=== PATIENT | male | born 1960 | race Caucasian/White ===

== ENCOUNTER → 2016-12-02 | Day surgery (SDC) | payer OTHER ==
[~2016-12-02] MED LIST: BUDE10.2 IH; FENTANYL PF 100 MCG/2 ML VIAL. IV PRN; HYDROMORPHONE 2 MG/ML VIAL. IV PRN; IV RINGERS,LACTATED 1000ML 1,000 ML IV SCH; LIDOCAINE 1% 1 ML SYRINGE. ID PRN; MORPHINE SULFATE 2 MG/ML DISP.SYRIN. IV PRN; ONDANSETRON PF 4 MG/2 ML VIAL. IV PRN; PROCHLORPERAZINE 10 MG/2 ML VIAL. IV PRN; PROPOFOL 40 ML IV ONE
[2016-12-02 08:40] VITALS: BP 125/84
--- NOTE | 2016-12-05 13:49 | PATHOLOGY ---
PATHOLOGY REPORT * * * * * * * * FINAL DIAGNOSIS: A. Colorectal biopsy, rectal polyp: - Tubular adenoma. B. Colon biopsies, sigmoid polyps x 2:- Tubular adenoma. - Hyperplastic polyp showing coagulation artifact. COMMENT: There is no high grade dysplasia or evidence of malignancy. (JPM:all; d/t: 12/05/2016) REPORT ELECTRONICALLY SIGNED BY: Miko Wesley M.D. DATE/TIME: 12/05/2016 13:47 * * * * * * * * GROSS PATHOLOGY: A. Received in formalin labeled "Anthony Rossi and rectal polyp," is a 0.8 x 0.7 x 0.6 cm polypoid piece of red-whalen soft tissue. The margin is inked and the tissue is sectioned perpendicular to the margin and submitted in its entirety in cassette A1. B. Received in formalin labeled "Anthony Rossi and sigmoid polyps 2," are 2 segments of whalen soft tissue measuring 1.2 x 0.4 x 0.3 cm in aggregate dimensions and measuring 0.5 and 0.7 cm in maximum dimension. The specimen is submitted entirely in cassette B1. (TTL; 12/02/2016) INITIAL CPT CODE(S): A; 71607 B; 08537 Professional services performed [place] [facility] [address] Technical services performed by [facility] at [address] [place] [address], [facility] [address] [address]. SPECIMEN(S) RECEIVED: A.Rectal polyp B.Sigmoid polyps x2 CLINICAL HISTORY: Screening colonoscopy PATIENT: ANTHONY ROSSI /AGE: 1110/06/1960 (Age: 56) PATIENT #: [id number] ALT CASE #: SPECIMEN COLLECTION DATE: 12/02/2016 SPECIMEN RECEIVED DATE: 12/02/2016 [facility] - [address] [place] [address] - PHONE: [phone] * * * END OF REPORT * * *
== END ==
LOC: ENDOS 06:50
PROVIDERS: ATTEND Internal Medicine Gastroenterology
DX: R19.7 Diarrhea, unspecified (principal); K62.1 Rectal polyp; K64.0 First degree hemorrhoids; M19.90 Unspecified osteoarthritis, unspecified site; J44.9 Chronic obstructive pulmonary disease, unspecified; F17.210 Nicotine dependence, cigarettes, uncomplicated; Z98.890 Other specified postprocedural states; Z72.89 Other problems related to lifestyle
CPT/HCPCS: 45385; J2704

== ENCOUNTER 2020-06-28 18:36 | Inpatient (IN) | payer OTHER ==
[~2020-06-28] VITALS: Ht 182.9 cm; Wt 129.7 kg
[~2020-06-28 18:36] MED LIST changes: -FENTANYL PF 100 MCG/2 ML VIAL. IV PRN; -HYDROMORPHONE 2 MG/ML VIAL. IV PRN; -IV RINGERS,LACTATED 1000ML 1,000 ML IV SCH; -LIDOCAINE 1% 1 ML SYRINGE. ID PRN; -MORPHINE SULFATE 2 MG/ML DISP.SYRIN. IV PRN; -ONDANSETRON PF 4 MG/2 ML VIAL. IV PRN; -PROCHLORPERAZINE 10 MG/2 ML VIAL. IV PRN; -PROPOFOL 40 ML IV ONE
[2020-06-28 18:43] VITALS: BP 136/94
[2020-06-28] MEDS ORDERED: ONDANSETRON PF 4 MG/2 ML VIAL. IV PRN (20:15)
[2020-06-28] MEDS ORDERED: ACETAMINOPHEN 325 MG TABLET. PO PRN (20:15)
[2020-06-28] MEDS ORDERED: HEPARIN for IV BOLUS 10,000 UNIT/10 ML VIAL. IV PRN (21:00)
[2020-06-28] MEDS ORDERED: HEPARIN 25,000UTS/250ML PREMIX 250 ML IV PRN (21:00)
--- NOTE | 2020-06-28 22:31 | NUR ---
Patient arrived at 1830. Contacted Dr. Burrell and new orders received and consult for cardiology. Contacted Dr. Ochoa on original troponin and received orders to start on heparin drip and not to call unless troponin above 10 and will cath in the AM.
[2020-06-28 23:00] VITALS: BP 128/94
[2020-06-28] MEDS: ANTI-COAG MONITOR BY PHARMACY. MC PRN (23:14)
[2020-06-28 23:20] VITALS: BP 139/91
[2020-06-29] VITALS (18 sets, daily range): BP systolic 111–162; BP diastolic 43–108
[2020-06-29 05:08] LABS: BASO % 0 % (0-3); EOS # 0.1 x10^3/uL (0.0-0.7); EOS % 2 % (0-3); HEMATOCRIT 48.9 % (39.0-53.0); HEMOGLOBIN 16.4 g/dL (13.0-17.5); LYMPH # 1.2 x10^3/uL (1.0-4.8); LYMPH % 21 % (24-48); MEAN CORPUSCULAR HEMOGLOBIN 28 pg (25-35); MEAN CORPUSCULAR HGB CONC 33 g/dL (31-37); MEAN CORPUSCULAR VOLUME 84 fL (79-100); MONO # 0.5 x10^3/uL (0.0-1.1); MONO % 9 % (0-9); NEUT # 3.9 x10^3/uL (1.8-7.7); NEUT % 68 % (31-73); PLATELET COUNT 129 x10^3/uL (140-400); RED BLOOD COUNT 5.81 x10^6/uL (4.30-5.70); RED CELL DISTRIBUTION WIDTH 14.9 % (11.5-14.5); WHITE BLOOD COUNT 5.7 x10^3/uL (4.0-11.0)
[2020-06-29 05:51] LABS: CHOLESTEROL/HDL RATIO 5.2
[2020-06-29 05:52] LABS: ALBUMIN 3.3 g/dL (3.4-5.0); ALBUMIN/GLOBULIN RATIO 0.9 (1.0-1.7); CALCIUM 8.6 mg/dL (8.5-10.1); CREATININE 0.9 mg/dL (0.7-1.3); POTASSIUM 3.6 mmol/L (3.5-5.1); TOTAL BILIRUBIN 0.3 mg/dL (0.2-1.0); TOTAL PROTEIN 6.8 g/dL (6.4-8.2)
--- NOTE | 2020-06-29 10:00 | HP ---
ADMIT DATE: 06/28/2020 HISTORY OF PRESENT ILLNESS: The patient is a 59-year-old male patient who presented to the Emergency Room of [facility] for evaluation of recurring right arm, right chest pain. He had initial symptoms which started a couple days ago, but had significant worsening of symptoms at around 4:00 on the day of admission. He is complaining of mild shortness of breath; however, he denied any injury, fall or trauma. Denied any nausea or vomiting. Denied any diaphoresis. He rated his pain about 9/10 in severity that lasted for almost 2 hours and he took 2 baby aspirin and ibuprofen and his pain lasted about 4 hours. By the time he arrived to the Emergency Room, his pain has largely subsided. He was extensively investigated in the Emergency Room and has had lab work done as well as EKG. His first set of cardiac enzymes showed troponin to be high at 2.358. He was also found to have mildly impaired kidney function slightly elevated creatinine as well as hypokalemia. His D-dimer was only 0.42. His EKG showed that he was in sinus rhythm with right bundle branch block and therefore, the patient was transferred to [facility] in consultation with inside sales for diagnosis of non-ST segment elevation myocardial infarction for cardiac catheterization and revascularization. PAST MEDICAL HISTORY: Significant for hypertension, hyperlipidemia; however, he is currently on no medication. PAST SURGICAL HISTORY: Significant for appendectomy and right wrist fracture, status post open reduction and internal fixation. ALLERGIES: He has no known drug allergies. MEDICATIONS: He is currently on no medication. He takes ibuprofen occasionally for aches and pains. FAMILY HISTORY: Significant for one older brother who has myocardial infarction. His mother has multiple cerebrovascular accidents. However, his father is alive and healthy. He has 1 brother and 2 sisters that are apparently healthy. SOCIAL HISTORY: He is and lives alone. He continued to smoke a pack and half a day, does not drink alcohol or use recreational drugs. 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 REVIEW OF SYSTEMS: The patient denied any blurring of vision, cataract, glaucoma or macular degeneration. Denied any earache, tinnitus or sensorineural deafness. Denied any nosebleeds, stuffy nose or postnasal drip. Denied any sore throat, sore tongue, toothache, hoarseness of voice or difficulty swallowing. He denied any nausea, vomiting, diarrhea or constipation. Denied any hematemesis, melena or hematochezia. Denied any dysuria, frequency or hematuria. He did complain of right-sided chest pain adjacent to the right arm and mild shortness of breath. Denied any cough, phlegm or hemoptysis. Denied any dizziness, lightheadedness, or vertigo. PHYSICAL EXAMINATION: GENERAL: On arrival to the Emergency Room, he looked well and was clearly in no apparent respiratory distress. No pallor, jaundice, cyanosis or thyromegaly. No jugular venous distention. No limb edema. VITAL SIGNS: His heart rate was 87, blood pressure was 154/101, temperature was 98.2, respiratory rate was 14 and oxygen saturation was 96%. HEAD, EYES, EARS, NOSE AND THROAT: Showed normocephalic, atraumatic. NECK: Supple. HEART: Showed normal first and second heart sounds. No gallop, rub or murmur. CHEST: Clear to auscultation. No crepitation or rhonchi. ABDOMEN: Distended, soft, nontender. NEUROLOGIC: He was awake, alert, responding appropriately. All his cranial nerves are intact. EXTREMITIES: He moves all extremities without difficulty, ambulates without assistance or assistive devices. LABORATORY DATA: Showed his white cell count was 5700, hemoglobin 16, hematocrit 48, MCV 85 and platelet count of 133,000. Serum sodium was 141, potassium 3.3, chloride 106, bicarbonate 24, anion gap of 11, BUN 17, creatinine 1.4, estimated GFR was 52 mL per minute, his glucose 170, calcium was 8.4. Total bilirubin, AST, ALT, alkaline phosphatase were normal. CK was 233. First troponin was 2.358. Total protein was 6.8, albumin 3.3. His D-dimer was 0.42. His EKG showed that he was in sinus rhythm with right bundle branch block. Chest x-ray showed that the cardiomediastinal silhouette is normal. Lungs are clear. There is no pneumothorax, no pleural effusion appreciated, no acute abnormality. ASSESSMENT AND PLAN: The patient was diagnosed with non-ST segment elevation myocardial infarction and was transferred to [facility] in consultation with the inside sales for cardiac catheterization and revascularization if deemed necessary. JORDAN VAZQUEZ MD DR: ELVIA/victoriano JOB#: [id number] / [id number]
--- NOTE | 2020-06-29 10:25 | PDOC2 ---
VIRGINIE MARTIN SYSTEM SAFETY MANAGER 06/29/20 1025: CARDIAC CONSULT DATE OF CONSULT Date of Consult DATE: 06/29/20 TIME: 10:19 REASON FOR CONSULT Reason for Consult: NSTEMI REFERRING PHYSICIAN Referring Physician: Dr. Burrell SOURCE Source: Chart review, Patient HISTORY OF PRESENT ILLNESS HISTORY OF PRESENT ILLNESS this is a 59 yo male who initially presented to [facility] secondary to chest pain. Trop noted at 2 and patient was transferred to [facility] for C. Patient reports right arm pain began Monday morning. Radiated up his right arm to the right chest and up to the right jaw and ear. Associated with SOA and chills. No dizziness, diaphoresis, palpitations, or nausea/vomiting. Took ASA and ibuprofen, without any significant improvement. Pain lasted about 2-3 hours and resolved. Pain returned yesterday morning so he came to the ED for further evaluation and treatment. PAST MEDICAL HISTORY Cardiovascular: HTN Pulmonary: COPD, Other (SVETLANA) Musculoskeletal: Osteoarthritis PAST SURGICAL HISTORY Past Surgical History: Appendectomy FAMILY HISTORY Family History: Coronary Artery Disease (brother ), Heart Disease, Hypertension, Stroke (mother ) SOCIAL HISTORY Smoke: 1 pack per day (1-1.5 ppd) ALCOHOL: none (quit ) Drugs: None Lives: Alone CURRENT MEDICATIONS CURRENT MEDICATIONS Current Medications Medications (Trade) Dose Ordered Sig/Betzaida Route PRN Reason Start Time Stop Time Status Last Admin Dose Admin Heparin Sodium/ Dextrose 250 ml @ 0 mls/hr CONT PRN IV PER PROTOCOL 06/28/20 21:00 06/28/20 21:40 Heparin Sodium (Porcine) (Heparin Sodium) 3,300 unit PRN Q6HRS PRN IV FOR UFH LEVEL LESS THAN 0.2 06/28/20 21:00 06/29/20 06:20 Info (Anti-Coagulation Monitoring By Pharmacy) 1 each PRN DAILY PRN MC SEE COMMENTS 06/28/20 21:15 06/28/20 23:14 ALLERGIES ALLERGIES: Coded Allergies: No Known Drug Allergies (Unverified , 12/02/16) ROS Review of System 14 ROS conducted with pertinent positives noted above in hPI PHYSICAL EXAM General: Alert, Oriented X3, Cooperative, No acute distress HEENT: Atraumatic, Mucous membr. moist/pink Lungs: Clear to auscultation Heart: Regular rate, Normal S1, Normal S2, No murmurs Abdomen: Soft, No tenderness Extremities: No edema, Normal pulses Skin: No significant lesion Neuro: Normal speech, Sensation intact Psych/Mental Status: Mental status NL, Mood NL MUSCULOSKELETAL: Osteoarthritic changes both hands VITALS/I&O VITALS/I&O: Vital Signs Date Time Temp Pulse Resp B/P (MAP) Pulse Ox O2 Delivery O2 Flow Rate FiO2 06/29/20 08:00 Room Air 06/29/20 07:00 97.7 65 22 162/105 (124) 91 97.7 I & O 06/28/20 06/28/20 06/29/20 14:59 22:59 06:59 Intake Total 240 ml 240 ml Balance 240 ml 240 ml LABS Lab: Laboratory Tests Test 06/28/20 20:30 06/28/20 23:25 06/29/20 03:00 06/29/20 03:45 Troponin I Quantitative 3.117 ng/mL (0.000-0.055) 2.811 ng/mL (0.000-0.055) 1.879 ng/mL (0.000-0.055) Heparin Anti-Xa Act, Unfractionated < 0.10 IU/mL (0.30-0.70) L White Blood Count 5.7 x10^3/uL (4.0-11.0) Red Blood Count 5.81 x10^6/uL (4.30-5.70) H Hemoglobin 16.4 g/dL (13.0-17.5) Hematocrit 48.9 % (39.0-53.0) Mean Corpuscular Volume 84 fL (79-100) Mean Corpuscular Hemoglobin 28 pg (25-35) Mean Corpuscular Hemoglobin Concent 33 g/dL (31-37) Red Cell Distribution Width 14.9 % (11.5-14.5) H Platelet Count 129 x10^3/uL (140-400) L Neutrophils (%) (Auto) 68 % (31-73) Lymphocytes (%) (Auto) 21 % (24-48) L Monocytes (%) (Auto) 9 % (0-9) Eosinophils (%) (Auto) 2 % (0-3) Basophils (%) (Auto) 0 % (0-3) Neutrophils # (Auto) 3.9 x10^3/uL (1.8-7.7) Lymphocytes # (Auto) 1.2 x10^3/uL (1.0-4.8) Monocytes # (Auto) 0.5 x10^3/uL (0.0-1.1) Eosinophils # (Auto) 0.1 x10^3/uL (0.0-0.7) Basophils # (Auto) 0.0 x10^3/uL (0.0-0.2) Sodium Level 142 mmol/L (136-145) Potassium Level 3.6 mmol/L (3.5-5.1) Chloride Level 107 mmol/L (98-107) Carbon Dioxide Level 25 mmol/L (21-32) Anion Gap 10 (6-14) Blood Urea Nitrogen 13 mg/dL (8-26) Creatinine 0.9 mg/dL (0.7-1.3) Estimated GFR (Cockcroft-Gault) 87.0 BUN/Creatinine Ratio 14 (6-20) Glucose Level 105 mg/dL (70-99) H Calcium Level 8.6 mg/dL (8.5-10.1) Total Bilirubin 0.3 mg/dL (0.2-1.0) Aspartate Amino Transferase (AST) 29 U/L (15-37) Alanine Aminotransferase (ALT) 28 U/L (16-63) Alkaline Phosphatase 66 U/L (46-116) Total Protein 6.8 g/dL (6.4-8.2) Albumin 3.3 g/dL (3.4-5.0) L Albumin/Globulin Ratio 0.9 (1.0-1.7) L Triglycerides Level 145 mg/dL (0-150) Cholesterol Level 177 mg/dL (0-200) LDL Cholesterol, Calculated 114 mg/dL (0-100) H VLDL Cholesterol, Calculated 29 mg/dL (0-40) Non-HDL Cholesterol Calculated 143 mg/dL (0-129) H HDL Cholesterol 34 mg/dL (40-60) L Cholesterol/HDL Ratio 5.2 Laboratory Tests 06/29/20 03:45 Laboratory Tests 06/29/20 03:45 ASSESSMENT/PLAN ASSESSMENT/PLAN 1. Chest pain, typical features 2. NSTEMI; trop peak 3.11. on heparin gtt 3. Hypertension; controlled 4. Dyslipidemia; LDL 114 5. COPD, SVETLANA-untreated 6. Tobaccoism Recommendations ASA therapy Add statin Continue heparin gtt TSH Echo to assess LV systolic function NPO Given symptomatology and risk factors in setting of NSTEMI, recommend cardiac cath with possible PCI. R/b/a were discussed with patient and he is agreeable to proceed. Will proceed later today. TODD SWENSON MD 06/29/20 9360: CARDIAC CONSULT ASSESSMENT/PLAN ASSESSMENT/PLAN Patient seen and examined. Agree with above nurse practitioner note. 59-year-old man presents with multiple risk factors and a non-ST elevation SD. Cardiac catheterization demonstrates diffuse endothelial dysfunction. Plan for statin therapy, Plavix and Xarelto. Supportive care for now. Continue risk factor modification. Discussed smoking cessation with the patient Plan for monitoring for 24 hours and discharge tomorrow. VIRGINIE MARTIN APRN Jun 29, 2020 10:25 TODD SWENSON MD Jun 29, 2020 17:30
[2020-06-29] MEDS ORDERED: LIDOCAINE 1% PF 2 ML VIAL. ONE ×2 (11:17→12:09)
[2020-06-29] MEDS ORDERED: HEPARIN for ARTERIAL LINE 0 ML ONE (11:18)
[2020-06-29] MEDS ORDERED: IOHEXOL 300 MG/ML 100ML VIAL. ONE ×2 (11:40→12:09)
--- NOTE | 2020-06-29 11:50 | PN ---
DATE: 06/29/2020 SUBJECTIVE: The patient is sitting on the edge of the bed comfortably in no apparent distress. On questioning him, he denied any complaint, in particular, he has no further episode of right-sided chest pain or right arm pain. He has had 3 more sets of cardiac enzyme. The troponin has risen up to peaked up to 3.117, second was 2.811 and third one was 1.879. His fasting lipid profile showed that his serum triglycerides 145, total cholesterol 177, LDL was 114, VLDL was 29, HDL was 34 and ratio was 5.2. PHYSICAL EXAMINATION: GENERAL: When I examined him, he looked well and was clearly in no apparent distress. No pallor, jaundice, cyanosis or thyromegaly. No jugular venous distention. No lower limb edema. VITAL SIGNS: His heart rate was 65, blood pressure was 162/105, temperature 97.7, respiratory rate 22, and oxygen saturation was 91% on room air. The rest of clinical exam is stable. ASSESSMENT: 1. Non-ST segment elevation myocardial infarction. 2. Hypertension. 3. Hyperlipidemia. 4. Morbid obesity, obstructive sleep apnea. PLAN: To await the cardiac outcome with his cardiac catheterization. Meanwhile, to continue with his heparin drip as recommended by the precise winder. JORDAN VAZQUEZ MD DR: ELVIA/victoriano JOB#: [id number] / [id number]
[2020-06-29] MEDS ORDERED: MIDAZOLAM HCL/PF 2 MG/2 ML VIAL. ONE (12:26)
[2020-06-29] MEDS ORDERED: HEPARIN for IV BOLUS 10,000 UNIT/10 ML VIAL. ONE (12:26)
[2020-06-29] MEDS ORDERED: VERAPAMIL 5 MG/2 ML VIAL. ONE (12:26)
[2020-06-29] MEDS ORDERED: NITROGLYCERIN 200 MCG/2 ML SYRINGE FOR CATH/VASC LAB. ONE ×2 (12:26→13:05)
[2020-06-29] MEDS ORDERED: fentaNYL PF VIAL 100 MCG/2 ML VIAL ONE (12:26)
[2020-06-29] MEDS ORDERED: MIDAZOLAM HCL/PF 2 MG/2 ML VIAL. IV ONE (12:45)
[2020-06-29] MEDS ORDERED: LIDOCAINE 1% PF 2 ML VIAL. INJ ONE (12:45)
[2020-06-29] MEDS ORDERED: IOHEXOL 300 MG/ML 100ML VIAL. IART ONE (12:45)
[2020-06-29] MEDS ORDERED: fentaNYL PF VIAL 100 MCG/2 ML VIAL IV ONE (12:45)
[2020-06-29] MEDS ORDERED: NITROGLYCERIN 200 MCG/2 ML SYRINGE FOR CATH/VASC LAB. IART ONE ×2 (12:45→13:15)
[2020-06-29] MEDS ORDERED: VERAPAMIL 5 MG/2 ML VIAL. IART ONE (12:45)
[2020-06-29] MEDS ORDERED: HEPARIN for IV BOLUS 10,000 UNIT/10 ML VIAL. IART ONE (12:45)
[2020-06-29] MEDS ORDERED: HEPARIN for IV BOLUS 10,000 UNIT/10 ML VIAL. IV ONE (13:15)
[2020-06-29] MEDS: ANTI-COAG MONITOR BY PHARMACY. MC PRN (13:57)
--- NOTE | 2020-06-29 14:47 | CARD ---
MR#: [id number] Date of Study: 06/29/2020 Ordering Physician: TODD SWENSON, Referring Physician: TODD SWENSON, Tech: XAVI CONDE RTR APPROVED REPORT Technologist: XAVI CONDE RTR Nurse: RAGINI SEN RN Procedure(s) performed: MODERATE SEDATION TIME: 40 MINUTES FLUORO TIME: 7.9 MIN DOSE: 134 GYCM2 CONTRAST: 104CC OMNI 300 LHC, Coronary angiography and IVUS of the LAD HISTORY : The patient is a 59 year-old male with a history of . [facility] Clinical Frailty Scale [facility] Clinical Frailty Scale: Managing Well Heart Failure Heart Failure: No PROCEDURE NARRATIVE Clinical information: 60-year-old man who presents to the hospital with chest pain and NSTEMI. Informed consent: Written informed consent was obtained from the patient after adequate discussion of the risks and magnolia efits of the procedure. Procedure details: ACCESS: The right wrist was prepped and draped in usual sterile fashion. Under 1% lidocaine local anesthesia a 6 Yemeni Terumo sheath was placed in the right radial artery via the Seldinger technique. DIAGNOSTIC ANGIOGRAPHY: Right and left coronary arteries were engaged with a 6 Yemeni TIG catheter. Diagnostic angiography i n multiple views were obtained. Next, a 6 Yemeni pigtail catheter was placed in the left ventricle a nd a LVEDP was measured. A pullback was performed. All catheters were exchanged over J-tip guidewir e. FINDINGS: ======= Aorta: 130/80 LVEDP: 18 mmHg Left ventriculogram: Deferred. Coronary angiography: LM: Large caliber vessel with normal angiographic appearance LAD: Large caliber vessel with normal angiographic appearance. D1: Moderate caliber vessel with normal angiographic appearance LCX: Large caliber non-dominant vessel with mild luminal irregularities OM1: Moderate caliber vessel with normal angiographic appearance RCA: Large caliber dominant vessel with mild luminal irregularities RPDA: Moderate caliber vessel with mild luminal irregularities. *Coronary flow suggestive of severe endothelial dysfunction. INTERVENTIONAL TECHNIQUE: Due to sluggish flow involving the LAD and LCx, a decision was made to perform an IVUS to rule out di ssection/thrombus. Heparin was used for anticoagulation. Through a 6Fr EBU 3.5 guide catheter, a 0.01 4'' Prowater was used to traverse the LAD. An IVUS catheter was used to do a manual pullback. IVUS de monstrated circumferential plaque w/o evidence of dissection or thrombus. CLOSURE: At case completion the right radial sheath was removed and a Terumo radial band was applied with 11 m L of air. Hemostasis was achieved. COMPLICATIONS: No acute complications noted Conclusion 1. Mildlly elevated left sided filling pressures. 2. No significant obstructive coronary disease with coronary flow suggestive of severe endothelial dy sfunction. Recommendations Plavix 75mg daily Xarelto 2.5mg bid Aggressive risk factor modification to include nitrates, statins, smoking cessation and weight loss. Signed by : Todd Swenson, Electronically Approved : 06/29/2020 14:47:05
--- NOTE | 2020-06-29 16:01 | NUR ---
SS following for discharge planning. SS reviewed pt chart and discussed with pt RN. Pt is from home alone and is currently on room air. Pt on Heparin drip. Pt had heart cath today. SS will continue to follow for discharge planning.
[2020-06-29] MEDS ORDERED: NICOTINE POLACRILEX 2MG GUM PACKAGE of 12. BC PRN (17:15)
[2020-06-29] MEDS ORDERED: ATORVASTATIN CALCIUM 40 MG TABLET. PO SCH (21:00)
[2020-06-29] MEDS: METOPROLOL TART IMMED RELEASE 25 MG TABLET. PO SCH (21:01)
[2020-06-30 03:00] VITALS: BP 120/86
[2020-06-30 07:00] VITALS: BP 121/84
[2020-06-30] MEDS ORDERED: ASPIRIN ENTERIC COATED 81 MG TABLET.DR. PO SCH (08:00)
[2020-06-30] MEDS: METOPROLOL TART IMMED RELEASE 25 MG TABLET. PO SCH (08:16)
[2020-06-30] MEDS ORDERED: RIVAROXABAN 10 MG TABLET. PO SCH (09:30)
[2020-06-30] MEDS ORDERED: CLOPIDOGREL BISULFATE 75 MG TABLET PO ONE (09:30)
[2020-06-30] MEDS ORDERED: AMLO2.5T2 PO (09:38)
[2020-06-30] MEDS ORDERED: METO25TA4 PO (09:38)
[2020-06-30] MEDS ORDERED: RIVA10TA PO (09:38)
[2020-06-30] MEDS ORDERED: CLOP75TA PO (09:38)
[2020-06-30] MEDS ORDERED: ATOR40TA59 PO (09:38)
--- NOTE | 2020-06-30 09:40 | DS ---
DATE OF DISCHARGE: 06/30/2020 HOSPITAL COURSE: The patient is a 59-year-old male patient who presented with a complaint of right-sided chest pain radiating to right upper extremity. His troponin was elevated when he was evaluated at [facility] Emergency Room and was transferred to [facility] with diagnosis of non-ST segment elevation myocardial infarction. He underwent cardiac catheterization and apparently he was found to have a mildly elevated left-sided filling pressure. He has no significant obstructive coronary artery disease with coronary flow suggestive of severe in detail dysfunction and the rf design engineer recommended starting him on Plavix 75 mg once a day, Xarelto 2.5 mg twice a day. He was started also on atorvastatin and recommended also nitrates and we did encourage him to quit smoking and lose weight. PHYSICAL EXAMINATION: GENERAL: When I saw him today, he looked well and was clearly in no apparent respiratory distress. No pallor, jaundice, cyanosis or thyromegaly. No jugular venous distention. No lower limb edema. VITAL SIGNS: His heart rate was 65, blood pressure was 121/84, temperature was 96.4, respiratory rate 20, and oxygen saturation was 94%. HEAD, EYES, EARS, NOSE AND THROAT: Showed normocephalic, atraumatic. NECK: Supple. HEART: Showed normal first and second heart sounds with no gallop, rub or murmur. CHEST: Clear to auscultation. No crepitation or rhonchi. ABDOMEN: Distended, soft, nontender. No guarding or rigidity. No organomegaly. All hernial orifices intact. Bowel sounds normal. NEUROLOGIC: He is grossly intact. LABORATORY DATA: Showed a white cell count 5700, hemoglobin 16, hematocrit 48, MCV 84 and platelet count of 129,000. His chemistry showed a serum sodium 142, potassium 3.6, chloride 107, bicarbonate 25, anion gap of 10, BUN 13, creatinine 0.9, estimated GFR was 87 mL per minute, his glucose 105, calcium was 8.6. Total bilirubin, AST, ALT, alkaline phosphatase were normal. Total protein was 6.8, albumin was 3.3. Serum triglycerides were 145, total cholesterol was 77, LDL was 114, VLDL was 29, HDL was 34 and ratio was 5. DISCHARGE MEDICATIONS: The patient was discharged home to continue on Plavix 75 mg once a day, rivaroxaban 2.5 mg twice a day, metoprolol 25 mg twice a day, atorvastatin 40 mg at bedtime and the cardiologists are still debating whether he should go on calcium channel blockers or nitrates. The patient was encouraged to quit smoking and to lose weight and he is to follow with the Cardiology team. JORDAN VAZQUEZ MD DR: ELVIA/victoriano JOB#: [id number] / [id number]
[2020-06-30] MEDS ORDERED: amLODIPine BESYLATE 5 MG TABLET PO SCH (10:00)
[2020-06-30 10:36] VITALS: BP 122/90
--- NOTE | 2020-06-30 10:45 | NUR ---
Discharge Note: ANTHONY ROSSI 2 [facility] Discharge instructions and discharge home medications reviewed with Patient and a copy given. All questions have been answered and understanding verbalized. The following instructions and handouts were given: discharge instructions, new med info, smoking cessation info, NSTEMI info, post cardiac cath info. Discontinued lines and drains: Peripheral IV intact. Patient discharged to Home or Self Care with Family Member via Ambulated at 1045.
--- NOTE | 2020-06-30 12:23 | CARD ---
MR#: [id number] Date of Study: 06/29/2020 Ordering Physician: VIRGINIE MARTIN, Referring Physician: VIRGINIE MARTIN, Tech: Sintia Balderas GEOFF APPROVED REPORT EXAM: Two-dimensional and M-mode echocardiogram with Doppler and color Doppler. Other Information Quality : Good INDICATION Chest Pain Non STEMI 2D DIMENSIONS RVDd3.1 (2.9-3.5cm)Left Atrium(2D)4.4 (1.6-4.0cm) IVSd0.9 (0.7-1.1cm)Aortic Root(2D)3.8 (2.0-3.7cm) LVDd5.6 (3.9-5.9cm)LVOT Diameter2.5 (1.8-2.4cm) PWd1.1 (0.7-1.1cm)LVDs3.2 (2.5-4.0cm) FS (%) 30.0 %SV113.1 ml Aortic Valve AoV Peak Nikhil.138.7cm/sAoV VTI25.7cm AO Peak GR.7.7mmHgLVOT VTI 22.87cm AO Mean GR.5mmHgAVA (VTI)4.35cm2 Mitral Valve MV E Zsrylelw03.3cm/sMV DECEL QOCA220pc MV A Vuoxxanh57.1cm/sE/A Ratio1.0 TDI Lateral E' P. V10.55cm/sMedial E' P. V4.96cm/s E/Lateral E'6.9E/Medial E'14.8 Tricuspid Valve TR P. Kyrkbxfx319by/sRAP YKEFFOVO8ddRe TR Peak Gr.52gjMjJKQG74tzIh Pulmonary Vein S1 Mrmjtgcz88.4cm/sS2 Cnkzhxbo46.29cm/s D2 Ouxghlcm10.3cm/s LEFT VENTRICLE The left ventricle is normal size. There is normal left ventricular wall thickness. The left ventricu lar systolic function is normal and the ejection fraction is within normal range. The Ejection Fracti on is 55-60%. There is normal LV segmental wall motion. The left ventricular diastolic function and f illing is normal for age. RIGHT VENTRICLE The right ventricle is normal size. The right ventricular systolic function is normal. ATRIA The left atrium is mildly dilated. The right atrium size is normal. The interatrial septum is intact with no evidence for an atrial septal defect or patent foramen ovale as noted on 2-D or Doppler imagi ng. AORTIC VALVE The aortic valve is normal in structure and function. Doppler and Color Flow revealed no significant aortic regurgitation. There is no significant aortic valvular stenosis. MITRAL VALVE The mitral valve is calcified but opens well. There is no evidence of mitral valve prolapse. There is no mitral valve stenosis. Doppler and Color Flow revealed no mitral valve regurgitation noted. TRICUSPID VALVE The tricuspid valve is normal in structure and function. Doppler and Color Flow revealed trace tricus pid regurgitation. The PA pressure was estimated at 21 mmHg. There is no tricuspid valve stenosis. PULMONIC VALVE The pulmonic valve is not well visualized. Doppler and Color Flow revealed no pulmonic valvular regur gitation. There is no pulmonic valvular stenosis. GREAT VESSELS The aortic root is normal in size. The ascending aorta is not well seen. The IVC is dilated and colla pses >50% with inspiration. PERICARDIAL EFFUSION There is no evidence of significant pericardial effusion. Critical Notification Critical Value: No <Conclusion> The left ventricle is normal size. The left ventricular systolic function is normal and the ejection fraction is within normal range. The Ejection Fraction is 55-60%. There is normal LV segmental wall motion. Doppler and Color Flow revealed no significant aortic regurgitation. There is no significant aortic valvular stenosis. Doppler and Color Flow revealed no mitral valve regurgitation noted. Doppler and Color Flow revealed trace tricuspid regurgitation. The PA pressure was estimated at 21 mmHg. Signed by : Rommel Prince MD Electronically Approved : 06/30/2020 12:23:37
--- NOTE | 2020-06-30 14:57 | PDOC ---
CARDIO Progress Notes Date and Time Date of Service 06/30/2020 Time of Evaluation 0940 Subjective Subjective: No Chest Pain, No shortness of breath, No Palpitations Vitals Vitals Vital Signs Date Time Temp Pulse Resp B/P (MAP) Pulse Ox O2 Delivery O2 Flow Rate FiO2 06/30/20 10:36 62 122/90 06/30/20 08:00 Room Air 06/30/20 07:00 96.4 20 94 96.4 06/29/20 19:30 2.0 Weight Weight [ ] Input and Output Intake and Output Intake and Output 06/30/20 07:00 Intake Total 1140 ml Balance 1140 ml Intake Oral 1140 ml # Voids 9 Physical Exam HEENT: Neck Supple W Full Motion Chest: Symmetric LUNGS: Clear to Auscultation Heart: S1S2, RRR (SR) Abdomen: Soft N/T Extremities: No Edema, No Calf Tenderness Neurology: alert, oriented, follow commands Assessment Assessment 1. NSTEMI: No intervenable lesions but noted with severe endothelial dysfunction per coronary flow. EF and WM nml 2. COPD with tobaccoism 3. Hypertension; controlled 4. Dyslipidemia; LDL 114 5. SVETLANA? 6. Obesity Recommendations 1. plavix with 2.5 mg xarelto bid 2. Follow up in office. 3. Metoprolol, and lipitor. Start on low dose norvasc 2.5 mg daily 4. Smoking cessation Justicifation of Admission Dx: Justifications for Admission: Justification of Admission Dx: Yes ADDISON CORTEZ APRN Jun 30, 2020 14:57
[2020-07-01] MEDS ORDERED: CLOPIDOGREL BISULFATE 75 MG TABLET PO SCH (08:00)
== END 2020-06-30 10:45 | disposition home or self-care (01) | DRG 282 ==
LOC: 2 SOUTH 18:36
PROVIDERS: ADMIT Internal Medicine; ATTEND Internal Medicine
PROC: 4A023N7 Measurement of Cardiac Sampling and Pressure, Left Heart, Percutaneous Approach (ICD-10-PCS; principal; 2020-06-29)
PROC: B2111ZZ Fluoroscopy of Multiple Coronary Arteries using Low Osmolar Contrast (ICD-10-PCS; 2020-06-29)
PROC: B240ZZ3 Ultrasonography of Single Coronary Artery, Intravascular (ICD-10-PCS; 2020-06-29)
DX: I21.4 Non-ST elevation (NSTEMI) myocardial infarction (principal); I77.9 Disorder of arteries and arterioles, unspecified; J44.9 Chronic obstructive pulmonary disease, unspecified; I10 Essential (primary) hypertension; E66.01 Morbid (severe) obesity due to excess calories; E87.6 Hypokalemia; E78.5 Hyperlipidemia, unspecified; F17.210 Nicotine dependence, cigarettes, uncomplicated; G47.33 Obstructive sleep apnea (adult) (pediatric); I45.10 Unspecified right bundle-branch block; N28.9 Disorder of kidney and ureter, unspecified; Z82.3 Family history of stroke; Z82.49 Family history of ischemic heart disease and other diseases of the circulatory system; M19.90 Unspecified osteoarthritis, unspecified site; Z68.38 Body mass index [BMI] 38.0-38.9, adult; Z79.899 Other long term (current) drug therapy; Z90.49 Acquired absence of other specified parts of digestive tract; Z60.2 Problems related to living alone; Z71.6 Tobacco abuse counseling
CPT/HCPCS: 36415; 37252; 80053; 80061; 84484; 85025; 85520; 93306; 93458; 99152; 99153; 99406; C1753; C1769; C1887; C1892; J1644; J2250; J3010; J3490; Q9967; G0378

== ENCOUNTER → 2022-01-19 | Day surgery (SDC) | payer OTHER ==
[~2022-01-19] VITALS: Ht 182.9 cm; Wt 143.8 kg
[~2022-01-19] MED LIST changes: +AMLO2.5T2 PO; +ATOR40TA59 PO; +CLOP75TA PO; +HYDR12.575 PO; +HYDROmorphone 2 MG/ML INJ. IVP PRN; +IV RINGERS,LACTATED 1000ML 1,000 ML IV SCH; +LIDOCAINE 2% PF 5 ML VIAL. ONE; +METO25TA4 PO; +MORPHINE SULFATE 2 MG/ML INJ. IVP PRN; +PROCHLORPERAZINE 10 MG/2 ML VIAL. IVP PRN; +PROPOFOL 10 MG/ML (20ML) VIAL. IV ONE; +RIVA10TA PO; +TAMS0.4C97 PO; +fentaNYL PF VIAL 100 MCG/2 ML VIAL IVP PRN
[2022-01-19 07:06] VITALS: BP 132/87
[2022-01-19 08:27] VITALS: BP 115/85
== END | disposition home or self-care (01) ==
LOC: ENDOS 06:31
PROVIDERS: ATTEND Internal Medicine Gastroenterology
DX: Z12.11 Encounter for screening for malignant neoplasm of colon (principal); K64.0 First degree hemorrhoids; K63.89 Other specified diseases of intestine; I10 Essential (primary) hypertension; J44.9 Chronic obstructive pulmonary disease, unspecified; G47.30 Sleep apnea, unspecified; M19.90 Unspecified osteoarthritis, unspecified site; F17.210 Nicotine dependence, cigarettes, uncomplicated; Z86.010 Personal history of colon polyps; Z85.828 Personal history of other malignant neoplasm of skin; Z79.899 Other long term (current) drug therapy; Z98.890 Other specified postprocedural states; Z82.49 Family history of ischemic heart disease and other diseases of the circulatory system
CPT/HCPCS: 45378; J2704